=== PATIENT | female | born 1935 | race African-American/Black ===

== ENCOUNTER 2019-11-20 21:18 | Emergency (ER) | payer MEDICARE ==
[~2019-11-20] VITALS: Ht 160 cm; Wt 65.8 kg
[2019-11-20] MEDS ORDERED: NORCO 5-325 TA1 EACH ORAL (21:26)
--- NOTE | 2019-11-20 21:45 | NUR ---
ED Nurse Note: Recieved pt BIBA from home with c/o foul smell from kennedy cath, pt has cath in place due to uteerine / bladder cancer, pt also noted with nephrostomy like cath to left side, pt states unsure of when cath was changed, cath is very dirty in appearance with brown colored, sedimented urine noted with foul odor from pt vaginal area, no discharge noted and mild vaginal swelling, old cath immediately removed and specimen sent, pt has mild pain to lower abdomen at rest, no other complaints or discomforts. pt currently recieving treatment at [facility].
[2019-11-20] MEDS ORDERED: Levofloxacin 500mg tab ORAL ONE (22:15)
[2019-11-20] MEDS ORDERED: HYDROcodone/Acetamin 5/325 tab ORAL ONE (22:30)
[2019-11-20 22:39] LABS: APPEARANCE,URINE CLOUDY; BILIRUBIN, URINE NEGATIVE (NEGATIVE); GLUCOSE, URINE (UA) NEGATIVE (NEGATIVE); KETONES,URINE 1+ (NEGATIVE); LEUKOCYTE ESTERASE ,URINE 3+ (NEGATIVE); NITRITE,URINE POSITIVE (NEGATIVE); PH,URINE 5 (4.5-8.0); PROTEIN,URINE 3+ (NEGATIVE); UROBILINOGEN,URINE 1 MG/DL (0.0-1.0)
[2019-11-20 22:41] LABS: COLOR,URINE BROWN
[2019-11-20] MEDS ORDERED: LEVAQUIN500 MG ORAL (22:50)
--- NOTE | 2019-11-20 22:51 | Emergency Room Report ---
History of Present Illness General Chief Complaint: Female Urogenital Problems Source: Patient Present Illness HPI Is an 84-year-old female with a history of uterine cancer. She has a Hassan and also ureteral stent. She presents with chief complaint of malfunction of her Hassan. She said there is odor coming out of it. She also complaining of some leakage. Some pain in that area. No nausea no vomiting. No fever chills. Nothing made it better. That made it worse. Came in by ambulance. Allergies: Coded Allergies: No Known Allergies (Unverified , 11/20/19) Patient History Past Medical History: see triage record, old chart reviewed Past Surgical History: other Pertinent Family History: none Social History: Denies: smoking Now: No Immunizations: other Reviewed Nursing Documentation: PMH: Agreed; PSxH: Agreed Nursing Documentation-PMH Past Medical History: No History, Except For Review of Systems Eye: Denies: eye pain, blurred vision ENT: Denies: ear pain, nose congestion, throat swelling Respiratory: Denies: cough, shortness of breath Cardiovascular: Denies: chest pain, palpitations Gastrointestinal: Denies: abdominal pain, diarrhea, nausea, vomiting Genitourinary: Reports: dysuria Musculoskeletal: Denies: back pain, joint pain Skin: Denies: rash Neurological: Denies: headache, numbness Endocrine: Denies: increased thirst, increased urine Hematologic/Lymphatic: Denies: easy bruising All Other Systems: negative except mentioned in HPI Physical Exam Vital Signs Date Time Temp Pulse Resp B/P (MAP) Pulse Ox O2 Delivery O2 Flow Rate FiO2 11/20/19 21:21 97.9 65 14 118/72 (87) 98 Room Air Vitals normal Sp02 EP Interpretation: reviewed, normal General Appearance: well appearing, no apparent distress, alert Head: normocephalic, atraumatic Eyes: bilateral eye PERRL, bilateral eye EOMI ENT: hearing grossly normal, normal pharynx Neck: full range of motion, supple, no meningismus Respiratory: chest non-tender, lungs clear, normal breath sounds Cardiovascular #1: regular rate, rhythm, no murmur Gastrointestinal: normal bowel sounds, non tender, no mass, no organomegaly, no bruit, non-distended Genitourinary: other - Hassan has dark malodorous urine. There is no obvious leakage. Musculoskeletal: back normal, normal range of motion, gait/station normal Psychiatric: mood/affect normal Medical Decision Making Diagnostic Impression: Primary Impression: Complication of Hassan catheter Qualified Codes: T83.9XXA - Unspecified complication of genitourinary prosthetic device, implant and graft, initial encounter Additional Impression: UTI (urinary tract infection) Qualified Codes: N30.00 - Acute cystitis without hematuria ER Course Patient with a malfunctioning Hassan. Most likely secondary to urinary tract infection. New catheter placed. Patient is otherwise stable. Will discharge back home by ambulance. Last Vital Signs Date Time Temp Pulse Resp B/P (MAP) Pulse Ox O2 Delivery O2 Flow Rate FiO2 11/20/19 21:21 97.9 65 14 118/72 (87) 98 Room Air Status: improved Disposition: HOME, SELF-CARE Condition: Stable Scripts Levofloxacin* (LEVAQUIN*) 500 Mg Tablet 500 MG ORAL DAILY, #7 TAB Prov: Abelino Byers MD 11/20/19 Referrals: [facility] (PCP) Patient Instructions: Urinary Tract Infection Additional Instructions: Follow up with your doctor in 7 days. Return if symptoms worsen. Abelino Byers MD Nov 20, 2019 22:51
[2019-11-20 23:30] VITALS: BP 111/71
[2019-11-20 23:45] VITALS: BP 111/71
--- NOTE | 2019-11-20 23:45 | NUR ---
ER DISCHARGE NOTE: Patient is cleared to be discharged per ERMD, pt is aox4, on room air, with stable vital signs. pt was given dc and prescription instructions, pt was able to verbalize understanding, pt id band removed without complications. pt is being transported back home via ambulance transport [id number]. pt took all belongings.
== END 2019-11-20 23:45 | disposition home or self-care (01) ==
LOC: EDBD 21:18 → EMR 21:35
DX: T83.9XXA Unspecified complication of genitourinary prosthetic device, implant and graft, initial encounter (principal); N30.00 Acute cystitis without hematuria; X58.XXXA Exposure to other specified factors, initial encounter; Y92.9 Unspecified place or not applicable; Z85.42 Personal history of malignant neoplasm of other parts of uterus
CPT/HCPCS: 51702; 81003; 87086; 87181; 99284